=== PATIENT | female | born 1975 | race Caucasian/White ===

== ENCOUNTER 2019-08-22 22:57 | Emergency (ER) | payer OTHER ==
[2019-08-22] MEDS ORDERED: Silver Sulfadiazine 1% Crm 50 GM Tube TOP ONE (23:28)
[2019-08-22] MEDS ORDERED: Acetaminophen/oxyCODONE 325-5 MG Tab PO ONE (23:29)
[2019-08-22] MEDS ORDERED: Ibuprofen 600 MG Tab PO ONE (23:29)
[2019-08-22] MEDS ORDERED: Ondansetron 4 MG Tab.DIS PO ONE (23:30)
[2019-08-22] MEDS ORDERED: Diphtheria,Pertussis(Acell),Tetanus Vaccine 0.5 ML Syringe IM ONE (23:34)
--- NOTE | 2019-08-22 23:34 | EDM.PDOC ---
ED HPI GENERAL MEDICAL PROBLEM - General Chief Complaint: Burn Stated Complaint: SPILLED WAX ON HAND/BURN Time Seen by Provider: 08/22/19 23:18 Source of Information: Reports: Patient History Limitations: Reports: No Limitations - History of Present Illness INITIAL COMMENTS - FREE TEXT/NARRATIVE: 43-year-old female presents to the ED with olivo to the left third fourth and fifth fingers after they were in contact with hot wax that was being used to make soap. It was melted in a microwave and unfortunately container it was and also melted. Most of the olivo are partial-thickness second-degree to the volar/ulnar aspect of the fingers as well as mildly on the dorsal aspect. This particularly involves the fifth and fourth finger. The third finger is less affected. Evidence of mild olivo to the palmar aspect of the hand distally inferior to the fourth and fifth fingers. He is not sure when her last tetanus toxoid was updated. 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 Injury occurred within the last 45 minutes. Onset: Today, Sudden Onset Date: 08/22/19 Onset Time: 22:55 Duration: Minutes: Location: Reports: Upper Extremity, Left (Olivo to the left hand involving the third fourth and fifth fingers.) Quality: Reports: Ache, Throbbing Severity: Moderate Improves with: Reports: None Context: Reports: Trauma (Olivo secondary to hot wax). 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) (None.) Left Hand Pain Score (Numeric/FACES): 10 - Related Data Allergies Allergy/AdvReac Type Severity Reaction Status Date / Time enoxaparin [From Lovenox] Allergy Hives Verified 08/22/19 23:11 heparin Allergy Hives Verified 08/22/19 23:11 Opioids - Morphine Analogues AdvReac Nausea and Verified 08/22/19 23:11 Vomiting Home Meds: Home Meds Pantoprazole [ProTONIX] 40 mg PO DAILY 08/22/19 [History] Warfarin [Coumadin] 2.5 mg PO SUTUWEFR 08/22/19 [History] Warfarin [Coumadin] 5 mg PO MOTHSA 08/22/19 [History] oxyCODONE HCl/Acetaminophen [Percocet 5-325 mg Tablet] 1 - 2 each PO Q4H PRN # 10 tablet 08/22/19 [Rx] Past Medical History Respiratory History: Reports: PE (Bilateral) Other Respiratory History: 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 - Past Surgical History GI Surgical History: Reports: Cholecystectomy Female Surgical History: Reports: Section Social & Family History - Tobacco Use Smoking Status *Q: Current Every Day Smoker Years of Tobacco use: 20 Packs/Tins Daily: 1 - Caffeine Use Caffeine Use: Reports: Soda - Recreational Drug Use Recreational Drug Use: No ED ROS GENERAL - Review of Systems Review Of Systems: See Below Constitutional: Reports: No Symptoms HEENT: Reports: No Symptoms Respiratory: Reports: No Symptoms Cardiovascular: Reports: No Symptoms Endocrine: Reports: No Symptoms GI/Abdominal: Reports: Other (GERD usually well controlled with omeprazole) : Reports: No Symptoms Musculoskeletal: Reports: No Symptoms Skin: Reports: Other (Partial-thickness second-degree olivo to the volar ulnar aspects of her left third and fourth fingers and less so to the third left finger.) Neurological: Reports: No Symptoms Psychiatric: Reports: No Symptoms ED EXAM, BURN/SMOKE INHALATION - Physical Exam Exam: See Below Exam Limited By: No Limitations General Appearance: Alert, WD/WN, Mild Distress, Other (Temperature is 36.8 pulse is 82 and sinus respiratory to 16 BP 06/20/1981 O2 sats 96%.) Extremities: Other (Examination of her left hand shows that she is suffered partial-thickness second-degree olivo with blister formation to the ulnar volar aspect of the left third and fourth fingers and less so to the volar aspect of the third finger. The burn does extend inferior to the fingers to the distal palmar aspect as well. No blisters are present at this time. The olivo do travels to the ulnar dorsal aspect of the left fourth and fifth fingers as well but not completely circumferential.) Neurological: Alert ( No other injuries identified), Oriented, CN II-XII Intact , Normal Cognition Psychiatric: Normal Affect, Normal Mood Skin Exam: Warm, Dry, Intact, Normal Color Course - Vital Signs Last Recorded V/S: Last Vital Signs Temp 36.8 C 08/22/19 23:06 Pulse 82 08/22/19 23:06 Resp 16 08/22/19 23:06 BP 119/82 08/22/19 23:06 Pulse Ox 96 08/22/19 23:06 - Orders/Labs/Meds Orders: Active Orders 24 hr Category Date Time Status Vaccines to be Administered [RC] PER UNIT ROUTINE Care 08/22/19 23:34 Active Meds: Medications Discontinued Medications Generic Name Dose Route Start Last Admin Trade Name Sriram PRN Reason Stop Dose Admin Diphtheria/Tetanus/Acell Pertussis 0.5 ml 08/22/19 23:34 08/22/19 23:49 Adacel IM 08/22/19 23:35 0.5 ml .ONCE ONE Administration Ibuprofen 600 mg 08/22/19 23:29 08/22/19 23:37 Motrin PO 08/22/19 23:30 600 mg ONETIME ONE Administration Ondansetron HCl 4 mg 08/22/19 23:30 08/22/19 23:37 Zofran Odt PO 08/22/19 23:31 4 mg ONETIME ONE Administration Oxycodone/Acetaminophen 2 tab 08/22/19 23:29 08/22/19 23:37 Percocet 325-5 Mg PO 08/22/19 23:30 2 tab ONETIME ONE Administration Silver Sulfadiazine 8 gm 08/22/19 23:28 08/22/19 23:37 Silvadene 1% Cream 50 Gm TOP 08/22/19 23:29 8 gm ONETIME ONE Administration - Radiology Interpretation Free Text/Narrative:: 43-year-old female presents to the ED for evaluation of olivo to the left third fourth and fifth fingers that occurred when they came in contact with hot wax that she was melting in the microwave tonight. She has suffered partial- thickness second-degree olivo with blister formation to the ulnar volar aspect of the left fourth and fifth fingers and less so to the volar aspect of the left third finger. There is also mild olivo to the distal volar aspect of the palm inferior to the left fourth and fifth fingers. Treat will be Silvadene burn dressings to each individual finger. 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 Tetanus diphtheria pertussis vaccine was updated today. She was given 2 Percocet tablets 5 to 25 mg strength in the ED with Motrin 600 mg p.o. and Zofran 4 mg sublingual for acute pain relief. 10 tablets of Percocet were provided for further pain relief over the next 24 to 36 hours and after that Motrin alone should suffice. She will have to do burn dressings to her fingers for about 10 days. Departure - Departure Time of Disposition: 23:31 Disposition: Home, Self-Care 01 Condition: Fair Clinical Impression: Olivo of multiple specified sites - Discharge Information *PRESCRIPTION DRUG MONITORING PROGRAM REVIEWED*: Not Applicable *COPY OF PRESCRIPTION DRUG MONITORING REPORT IN PATIENT KAMINI: Not Applicable Prescriptions: oxyCODONE HCl/Acetaminophen [Percocet 5-325 mg Tablet] 1 - 2 each PO Q4H PRN # 10 tablet PRN Reason: pain relief. Instructions: Burn Care, Adult, [id number] Referrals: PCP,Not In Area [Primary Care Provider] - Forms: ED Department Discharge Additional Instructions: Evaluation in the emergency room tonight in regards to first-degree and partial- thickness second-degree olivo to the volar and dorsal surfaces of the left third fourth and fifth fingers. Occurred due to contact of the skin with hot wax. Is already forming particularly on the left fourth and fifth fingers. The blisters were opened up and drained serous fluid likely for about 3 days starting tomorrow. Treatment is daily cleansing the wounds with soap and water usually Dove or Ivory and then applying Silvadene ointment and burn dressings to the fingers for the next 7 to 10 days. You were given Percocet tablets 5 325 mg strength 2 by mouth with Motrin 600 mg in the ED with Zofran 4 mg to prevent any nausea or vomiting for acute pain relief. Suggest follow-up as the morning for burn dressing with either the walk-in clinic at [place] or with the providers on third floor of the hospital such as Romi Munoz, Elizabeth Saini etc. please call [phone] to arrange an appointment bring your Silvadene burn cream with you. The pain is markedly improved out of the first 24 hours post injury. I have written a prescription for 10 tablets of Percocet tab 5 325 mg strength 1 or 2 tablets every 4-6 hours as needed for pain relief. After this Motrin 600 mg every 6 hours should do the trick. SPECT the fingers to heal over the next 10 to 14 days. Tetanus diphtheria pertussis vaccine was updated today and is good for the next 10 years Sepsis Event Note - Evaluation Sepsis Screening Result: No Definite Risk - Focused Exam Vital Signs: Vital Signs Temp Pulse Resp BP Pulse Ox 08/22/19 23:06 36.8 C 82 16 119/82 96 Date Exam was Performed: 08/23/19 Time Exam was Performed: 01:56 - My Orders Last 24 Hours: My Active Orders 08/22/19 23:34 Vaccines to be Administered [RC] PER UNIT ROUTINE - Assessment/Plan Last 24 Hours: My Active Orders 08/22/19 23:34 Vaccines to be Administered [RC] PER UNIT ROUTINE
== END 2019-08-22 23:53 | disposition home or self-care (01) ==
LOC: JD.ED 22:57
DX: T23.232A Burn of second degree of multiple left fingers (nail), not including thumb, initial encounter (principal); F17.210 Nicotine dependence, cigarettes, uncomplicated; Z88.8 Allergy status to other drugs, medicaments and biological substances; Z88.5 Allergy status to narcotic agent; Z79.01 Long term (current) use of anticoagulants; Z79.899 Other long term (current) drug therapy; X12.XXXA Contact with other hot fluids, initial encounter
CPT/HCPCS: 90471; 90715; 99283; A9270